=== PATIENT | male | born 2000 | race Two or more races ===

== ENCOUNTER 2021-06-17 04:25 | Emergency (ER) | payer OTHER ==
[~2021-06-17] VITALS: Ht 167.6 cm; Wt 44.0 kg
[2021-06-17] MEDS ORDERED: PEPCID AC20 MG PO (13:51)
== END 2021-06-17 14:22 | disposition home or self-care (01) ==
LOC: EMR PED 04:25
DX: K52.89 Other specified noninfective gastroenteritis and colitis (principal)

== ENCOUNTER 2021-08-05 05:14 | Emergency (ER) | payer OTHER ==
[~2021-08-05] VITALS: Ht 167.6 cm; Wt 48.5 kg
[~2021-08-05 05:14] MED LIST: PEPCID AC20 MG PO
== END 2021-08-05 14:11 | disposition home or self-care (01) ==
LOC: ER 05:14 → EMR PED 05:18
DX: R11.2 Nausea with vomiting, unspecified (principal); R10.9 Unspecified abdominal pain; K52.9 Noninfective gastroenteritis and colitis, unspecified; Z20.822 Contact with and (suspected) exposure to COVID-19